=== PATIENT | female | born 1960 | race African-American/Black ===

== ENCOUNTER 2017-10-19 18:13 | Emergency (ER) | payer MEDICAID ==
[~2017-10-19] VITALS: Ht 175.3 cm; Wt 90.7 kg
[2017-10-19 18:32] VITALS: BP 114/78
== END 2017-10-19 19:46 | disposition home or self-care (01) ==
LOC: ER 18:13
DX: T78.40XA Allergy, unspecified, initial encounter (principal); J45.909 Unspecified asthma, uncomplicated

== ENCOUNTER 2020-02-25 17:08 | Emergency (ER) | payer MEDICAID ==
[~2020-02-25] VITALS: Ht 165.1 cm; Wt 91.6 kg
[2020-02-25] MEDS ORDERED: DexAMETHasone SOD PHOS 10MG/1ML VIAL INJ IV ONE (19:15)
[2020-02-25 19:24] VITALS: BP 123/79
== END 2020-02-25 21:00 | disposition home or self-care (01) ==
LOC: ER 17:08 → EDBD 17:08 → ER 21:00
DX: T88.6XXA Anaphylactic reaction due to adverse effect of correct drug or medicament properly administered, initial encounter (principal); T36.0X5A Adverse effect of penicillins, initial encounter; X58.XXXA Exposure to other specified factors, initial encounter
CPT/HCPCS: 96374; 99283; J1100

== ENCOUNTER 2021-12-25 14:19 | Emergency (ER) | payer MEDICAID ==
[~2021-12-25] VITALS: Ht 165.1 cm; Wt 88.5 kg
[2021-12-25 19:05] VITALS: BP 126/71
== END 2021-12-25 19:12 | disposition home or self-care (01) ==
LOC: EDBD 14:19 → ER 14:32
DX: T78.40XA Allergy, unspecified, initial encounter (principal); J45.909 Unspecified asthma, uncomplicated; R94.31 Abnormal electrocardiogram [ECG] [EKG]; X58.XXXA Exposure to other specified factors, initial encounter
CPT/HCPCS: 93005